=== PATIENT | female | born 1970 | race Hispanic/Latino ===

== ENCOUNTER 2017-09-21 00:09 | Emergency (ER) | payer SELFPAY ==
[2017-09-21 00:44] LABS: BASOPHILS % (AUTO) 0.8 % (0.0-5.0); EOSINOPHILS % (AUTO) 1.9 % (0.0-8.0); HEMATOCRIT 39.3 % (36-48); LYMPHOCYTES % (AUTO) 27.2 % (21.0-51.0); MEAN CORPUSCULAR HEMOGLOBIN 27.3 pg (27.0-33.0); MEAN CORPUSCULAR HGB CONC 34.1 g/dL (32.0-36.0); MONOCYTES % (AUTO) 10.9 % (3.0-13.0); NEUTROPHILS % (AUTO) 59.2 % (40.0-77.0); PLATELET COUNT (AUTO) 267 K/uL (130-400); RED BLOOD CELL COUNT(AUTO) 4.92 MIL/uL (4.00-5.50); RED CELL DISTRIBUTION WIDTH 14.6 % (11.0-15.5); WHITE BLOOD COUNT (AUTO) 9.8 K/uL (4.8-10.8)
[2017-09-21 00:53] LABS: CREATININE 0.7 mg/dL (0.5-1.5); POTASSIUM 3.5 mmol/L (3.5-5.1)
[2017-09-21 00:56] LABS: INR 0.96 (0.85-1.15); PARTIAL THROMBOPLASTIN TIME 24.7 SEC (26.3-35.5); PROTHROMBIN TIME 10.1 SEC (9.6-11.6)
[2017-09-21] MEDS ORDERED: SODIUM CHLORIDE 0.9% 1000ML 1,000 ML IV ONE (01:09)
[2017-09-21] MEDS ORDERED: ASPIRIN 325 MG TABLET ONE (01:09)
[2017-09-21 01:17] LABS: ALBUMIN 3.5 g/dL (3.5-5.0); BILIRUBIN,TOTAL 0.2 mg/dL (0.2-1.0); CREATINE KINASE MB 0.5 ng/mL (0.5-3.6); TOTAL PROTEIN, SERUM 7.7 g/dL (6.0-8.3)
== END 2017-09-21 02:19 | disposition home or self-care (01) ==
LOC: EDH 00:09
DX: R00.2 Palpitations (principal); E07.9 Disorder of thyroid, unspecified; R79.1 Abnormal coagulation profile
CPT/HCPCS: 36415; 71045; 80053; 82550; 82553; 83874; 84484; 85025; 85610; 85730; 93005; 94761; 96360; 99285; J7030

== ENCOUNTER 2019-03-19 00:13 | Emergency (ER) | payer OTHER ==
[2019-03-19] MEDS ORDERED: KETOROLAC TROMETHAMINE 30MG/ML ONE (00:46)
[2019-03-19] MEDS ORDERED: ONDANSETRON HCL 4 MG/2 ML VIAL ONE (00:46)
[2019-03-19] MEDS ORDERED: SODIUM CHLORIDE 0.9% 1000ML 1,000 ML IV ONE (00:47)
[2019-03-19 00:50] LABS: BASOPHILS % (AUTO) 0.8 % (0.0-5.0); EOSINOPHILS % (AUTO) 1.9 % (0.0-8.0); HEMATOCRIT 38.7 % (36-48); LYMPHOCYTES % (AUTO) 22.2 % (21.0-51.0); MEAN CORPUSCULAR HEMOGLOBIN 28.2 pg (27.0-33.0); MEAN CORPUSCULAR HGB CONC 34.4 g/dL (32.0-36.0); MONOCYTES % (AUTO) 9.9 % (3.0-13.0); NEUTROPHILS % (AUTO) 65.2 % (40.0-77.0); PLATELET COUNT (AUTO) 230 K/uL (130-400); RED BLOOD CELL COUNT(AUTO) 4.72 MIL/uL (4.00-5.50); RED CELL DISTRIBUTION WIDTH 13.7 % (11.0-15.5); WHITE BLOOD COUNT (AUTO) 8.3 K/uL (4.8-10.8)
[2019-03-19 00:53] LABS: APPEARANCE,URINE Clear (CLEAR); BILIRUBIN,URINE Negative (NEGATIVE); COLOR,URINE Yellow (YELLOW); GLUCOSE, URINE (UA) Negative (NEGATIVE); KETONES,URINE Negative (NEGATIVE); LEUKOCYTE ESTERASE ,URINE Negative (NEGATIVE); NITRATE,URINE Negative (NEGATIVE); OCCULT BLOOD,URINE Negative (NEGATIVE); PH,URINE 5.5 (5.0-8.0); PROTEIN,URINE Negative (NEGATIVE); UROBILINOGEN,URINE 0.2 mg/dL (0.2-1.0)
[2019-03-19 01:00] LABS: CREATININE 0.7 mg/dL (0.5-1.5); POTASSIUM 3.5 mmol/L (3.5-5.1)
[2019-03-19 01:04] LABS: ALBUMIN 3.6 g/dL (3.5-5.0); BILIRUBIN,TOTAL 0.3 mg/dL (0.2-1.0); TOTAL PROTEIN, SERUM 7.5 g/dL (6.0-8.3)
== END 2019-03-19 01:50 | disposition home or self-care (01) ==
LOC: EDH 00:13
DX: K29.00 Acute gastritis without bleeding (principal); J21.9 Acute bronchiolitis, unspecified; E07.9 Disorder of thyroid, unspecified; Z90.49 Acquired absence of other specified parts of digestive tract; Z90.710 Acquired absence of both cervix and uterus
CPT/HCPCS: 36415; 80053; 81003; 82150; 83690; 84484; 85025; 93005; 96361; 96374; 96375; 99285; J1885; J2405; J7030

== ENCOUNTER 2021-03-20 13:29 | Emergency (ER) | payer OTHER ==
[~2021-03-20] VITALS: Ht 157.5 cm; Wt 99.3 kg
[2021-03-20] MEDS ORDERED: PREDNISONE 20 MG TABLET PO ONE (16:30)
[2021-03-20] MEDS ORDERED: ACETAMINOPHEN WITH CODEINE 1 TAB TAB PO ONE (16:30)
[2021-03-20] MEDS ORDERED: AMOX/CLAV 875/125MG TAB PO ONE (16:30)
[2021-03-20] MEDS ORDERED: ALBUTEROL INHALER 90MCG/INH IH PRN (16:30)
[2021-03-20 16:46] VITALS: BP 134/84
[2021-03-20] MEDS ORDERED: BENZ-17 PO (17:23)
[2021-03-20] MEDS ORDERED: PRED20TA3 PO (17:23)
[2021-03-20] MEDS ORDERED: ALBUHFA IH (17:23)
[2021-03-20] MEDS ORDERED: AMOX-429 PO (17:23)
[2021-03-20 17:48] VITALS: BP 135/74
== END 2021-03-20 17:49 | disposition home or self-care (01) ==
LOC: EDH 13:29
DX: J40 Bronchitis, not specified as acute or chronic (principal); Z20.822 Contact with and (suspected) exposure to COVID-19; Z90.710 Acquired absence of both cervix and uterus
CPT/HCPCS: 71045; 87635; 87804 ×2; 87880; 99284; C9803

== ENCOUNTER → 2023-06-02 | Outpatient (CLI) | payer OTHER ==
[~2023-06-02] MED LIST: ALBUHFA IH; AMOX-429 PO; BENZ-17 PO; GADOTERATE MEGLUMINE 10 MMOL/20 ML VIAL IV ONE; PRED20TA3 PO
== END | disposition home or self-care (01) ==
LOC: RAH 07:56
PROVIDERS: ATTEND Internal Medicine
DX: E23.7 Disorder of pituitary gland, unspecified (principal); E27.40 Unspecified adrenocortical insufficiency
CPT/HCPCS: 70553; A9575

== ENCOUNTER 2023-08-03 20:03 | Emergency (ER) | payer BC, OTHER ==
[~2023-08-03] VITALS: Ht 154.9 cm; Wt 111.6 kg
[~2023-08-03 20:03] MED LIST changes: -GADOTERATE MEGLUMINE 10 MMOL/20 ML VIAL IV ONE
[2023-08-03] MEDS ORDERED: KETOROLAC 60 MG VIAL (30MG/ML) IM ONE (21:00)
[2023-08-03] MEDS ORDERED: IBUP-1493 PO (22:42)
[2023-08-03 23:08] VITALS: BP 134/77; PULSE 65; RESP 17; O2SAT 96
== END 2023-08-03 23:14 | disposition home or self-care (01) ==
LOC: EDH 20:03
DX: S76.911A Strain of unspecified muscles, fascia and tendons at thigh level, right thigh, initial encounter (principal); E03.9 Hypothyroidism, unspecified; E66.9 Obesity, unspecified; Z90.49 Acquired absence of other specified parts of digestive tract; Z90.710 Acquired absence of both cervix and uterus; Z68.42 Body mass index [BMI] 45.0-49.9, adult; X58.XXXA Exposure to other specified factors, initial encounter; Y93.89 Activity, other specified; Y92.89 Other specified places as the place of occurrence of the external cause; Y99.8 Other external cause status
CPT/HCPCS: 99284; 73552; 96372; J1885

== ENCOUNTER 2024-01-02 16:00 | Emergency (ER) | payer BC ==
[~2024-01-02] VITALS: Ht 154.9 cm; Wt 108.9 kg
[~2024-01-02 16:00] MED LIST changes: +IBUP-1493 PO
[2024-01-02 16:38] LABS: BASOPHILS # (AUTO) 0.04 K/uL (0.00-0.20); BASOPHILS % (AUTO) 0.5 % (0.0-5.0); EOSINOPHILS % (AUTO) 1.3 % (0.0-8.0); HEMATOCRIT 41.7 % (36-48); IMMATURE GRANULOCYTE ABSOLUTE 0.02 K/uL (0-1); LYMPHOCYTES # (AUTO) 1.1 K/uL (1.0-4.8); LYMPHOCYTES % (AUTO) 14.4 % (21.0-51.0); MEAN CORPUSCULAR HEMOGLOBIN 27.2 pg (27.0-33.0); MEAN CORPUSCULAR HGB CONC 32.6 g/dL (32.0-36.0); MEAN CORPUSCULAR VOLUME 83.4 fL (79-99); MONOCYTES # (AUTO) 0.7 K/uL (0.1-1.0); MONOCYTES % (AUTO) 8.7 % (3.0-13.0); NEUTROPHILS # (AUTO) 5.7 K/uL (1.8-7.7); NEUTROPHILS % (AUTO) 74.8 % (40.0-77.0); PLATELET COUNT (AUTO) 278 K/uL (130-400); RED CELL DISTRIBUTION WIDTH 14.4 % (11.0-15.5); WHITE BLOOD COUNT (AUTO) 7.6 K/uL (4.8-10.8)
[2024-01-02 16:50] LABS: INR 1.02 (0.85-1.15)
[2024-01-02 16:51] LABS: PARTIAL THROMBOPLASTIN TIME 25.1 SEC (26.3-35.5)
[2024-01-02 16:56] LABS: CREATININE 0.9 mg/dL (0.5-1.0)
[2024-01-02] MEDS: IBUPROFEN 800 MG TAB PO ONE (17:44)
[2024-01-02] MEDS ORDERED: IBUP-2077 PO (17:44)
[2024-01-02 17:58] VITALS: BP 121/54; PULSE 71; RESP 17; O2SAT 96
== END 2024-01-02 18:16 | disposition home or self-care (01) ==
LOC: EDH 16:00
DX: M79.605 Pain in left leg (principal); M79.89 Other specified soft tissue disorders; E03.9 Hypothyroidism, unspecified; Z79.899 Other long term (current) drug therapy; Z90.49 Acquired absence of other specified parts of digestive tract; Z90.710 Acquired absence of both cervix and uterus; Z98.890 Other specified postprocedural states
CPT/HCPCS: 36415; 80048; 85025; 85610; 85730; 93971

== ENCOUNTER 2024-07-25 21:52 | Emergency (ER) | payer BC ==
[~2024-07-25] VITALS: Ht 154.9 cm; Wt 108.9 kg
[~2024-07-25 21:52] MED LIST changes: +IBUP-2077 PO
--- NOTE | 2024-07-25 22:06 | NUR ---
ADULT SEPSIS TOOL STARTED AND GIVEN TO PRIMARY NURSE. SEPSIS ALERT CALLED
--- NOTE | 2024-07-25 22:06 | NUR ---
UA CUP PROVIDED
[2024-07-25] MEDS: LACTATED RINGERS 1000ML 1,000 ML IV ONE (22:37)
[2024-07-25] MEDS: ketOROlac 15MG/ML VIAL (15MG/ML) IV ONE (22:38)
[2024-07-25 23:02] LABS: CREATININE 0.7 mg/dL (0.5-1.0)
--- NOTE | 2024-07-25 23:06 | HMCIMG ---
CHEST 1VW HISTORY: Cough COMPARISON: 03/20/2021 FINDINGS: A frontal projection of the chest was obtained. Mild bilateral pulmonary infiltrates are seen may be related to mild pulmonary vascular congestion with possible superimposed pneumonitis. The heart is borderline enlarged. Degenerative changes are seen. No evidence of aortic calcification is seen. IMPRESSION: 1. Mild bilateral pulmonary infiltrates are seen may be related to mild pulmonary vascular congestion with possible superimposed pneumonitis.
[2024-07-25 23:13] LABS: COVID19 (SARS ANTIGEN RAPID) PRESUMPTIVE NEGATIVE (NEGATIVE); INFLUENZA TYPE A Negative For Type A (NEGATIVE); INFLUENZA TYPE B Negative For Type B (NEGATIVE)
--- NOTE | 2024-07-25 23:30 | ERN ---
General Chief Complaint: Sepsis Stated Complaint: CHILLS,FEVER,COUGH,CHEST PAINS Time Seen by MD: 21:55 History of Present Illness Initial Comments 54-year-old female, history of hypothyroidism, obesity, presents from home for a flu-like illness. She reports body aches, fevers, headache, sore throat, mild cough, and some loose stools. P.o. tolerant. Some chest discomfort with coughing. No respiratory distress. She reports that her grandson has a influenza a currently. Allergies: Coded Allergies: No Known Allergies (Unverified Allergy, Unknown, 03/20/21) Home Meds Active Scripts Ibuprofen (Ibuprofen 800 mg Tab) 800 Mg Tab, 800 MG PO Q8H PRN for fever or pain, #30 TAB 0 Refills Prov:GENA BABCOCK NP 01/02/24 Ibuprofen (Motrin/Advil) 800 Mg Tab, 800 MG PO Q8H, #12 TAB Prov:TIMUR MARMOLEJO MD 08/03/23 Benzonatate (Tessalon Perle) 100 Mg Capsule, 200 MG PO TIDP, #30 CAP Prov:LUPE TORO 03/20/21 Prednisone (Prednisone) 20 Mg Tablet, 2 TAB PO AD for 6 Days, #10 TAB 0 Refills TAKE 1 TAB BY MOUTH THREE TIMES PER DAY X3 DAYS, THEN TAKE 1 TAB BY MOUTH TWICE A DAY X2 DAYS, THEN TAKE 1 TAB BY MOUTH ONCE A DAY X1 DAY. Prov:LUPE TORO 03/20/21 Albuterol Sulfate (Ventolin Hfa/Proventil Hfa/Proair Hfa) 90 Mcg/Puff Puff, 2 PUFF IH Q4H, #1 INH Prov:LUPE TORO 03/20/21 Amoxicillin/Potassium Clav (Augmentin 875-125 Tablet) 1 Each Tablet, 1 TAB PO BID for 10 Days, #20 TAB 0 Refills Prov:LUPE TORO 03/20/21 Past Medical History Past Medical History: Hypothyroid, Other Medical History Other: STOMACHE ULCER, THYROID, obesity, LOW CORTISOL Past Surgical History: Hysterectomy, Cholecystectomy, Surgical History Other: LEFT EYE SX Female( History) History: Not Applicable ROS Dictation CONSTITUTIONAL: Fevers and chills HEAD/FACE: No signs of trauma. EENT: No eye pain, no blurred vision, no tearing, no double vision, no ear pain, no ear discharge, no nose pain, no nasal congestion, no throat pain, no throat swelling, no mouth pain. RESPIRATORY: No cough, no orthopnea, no SOB, no stridor, no wheezing. CARDIOVASCULAR: No chest pain, no edema, no palpitations, no syncope. GASTROINTESTINAL/ABDOMINAL: No abdominal pain, no constipation, no diarrhea, no nausea, no vomiting. GENITOURINARY: No abnormal discharge, no dysuria, no frequent urination, no hematuria. No complaints of pain in the genitals. MUSCULOSKELETAL: No back pain, no gout, no joint pain, no joint swelling, no muscle pain, no muscle stiffness, no neck pain. INTEGUMENTARY: No change in color, no change in hair/nails, no dryness, no lesion, no lumps, no rash. NEUROLOGICAL/PSYCH: No anxiety, not depressed, no emotional problem, no headache, no numbness, no pre-existing deficit, no history of seizures, no t remors, no weakness. HEMATOLOGIC/LYMPHATIC: Not anemic, no history of blood clots, no apparent bleeding, no bruising, glands not swollen. All Systems Negative, Except as Noted. Physical Exam Physical Exam Dictation VITAL SIGNS: Reviewed. GENERAL APPEARANCE: Alert, oriented x3, no acute distress, obese. HEAD AND FACE: Non-traumatic. EYES: PERRL, pink conjunctivas, eyelid no trauma, anterior chamber clear. EARS: Pinnas intact and no signs of trauma or erythema. Ear canals clear and no discharge. TMs no erythema. NOSE: No discharge, no bleeding. OROPHARYNX: Mouth normal, teeth no caries, tongue pink. Pharynx clear, no erythema. Tonsils no exudates, no abscesses noted. Mucous membrane moist. NECK: Supple, non-tender, no thyromegaly, no masses, no JVD, no bruits. BREAST: Deferred. CHEST: No tenderness, no crepitus, no paradoxical movement, no retractions. LUNGS: Clear, well-ventilated, symmetric, no rales, no wheezing, no rhonchi, no stridor, good breath sounds bilaterally. HEART: Regular rate, regular rhythm, no murmur, no gallops. VASCULAR: No peripheral edema. ABDOMEN: Soft, positive bowel sounds, nondistended, no guarding, nontender, no rebound, no masses no hepatomegaly, no splenomegaly, no Bernabe's sign, no hernias. RECTAL: Deferred. GENITAL: Deferred. NEUROLOGICAL: Normal speech, gross motor function intact, gross sensory function intact. MUSCULOSKELETAL: Neck nontender, full range of motion, back nontender, full range of motion. EXTREMITIES: Nontender, full range of motion. SKIN: Color pink, dry, no turgor, no rash, no lacerations, no abrasions, no contusions. LYMPHATICS: Deferred. Results Laboratory and Microbiology Lab and Micro Result Laboratory Tests Test 07/25/24 22:29 07/25/24 22:30 Sodium Level 137 mmol/L (136-145) Potassium Level 4.0 mmol/L (3.5-5.1) Chloride Level 102 mmol/L (101-111) Carbon Dioxide Level 28 mmol/L (21-32) Blood Urea Nitrogen 17 mg/dL (7-18) Creatinine 0.7 mg/dL (0.5-1.0) Glomerular Filtration Rate Calc 103 mL/min (>90) Random Glucose 111 mg/dL (70-105) H Lactic Acid Level 1.9 mmol/L (0.8-2.5) Total Calcium 8.4 mg/dL (8.5-10.1) L Total Creatine Kinase 124 U/L (21-232) # Troponin I High Sensitivity < 4 ng/L (4-50) L Influenza Type A Antigen Negative For Type A Influenza Type B Antigen Negative For Type B SARS-CoV-2 Antigen (Rapid) PRESUMPTIVE NEGATIVE MDM CC: Flu-like symptoms Historian: Patient Comorbidities: Obesity, hypothyroidism Limitations by social determinants of health: None Initial vital signs of febrile mild tachycardia otherwise stable Vital signs improved in the ER with treatment Differential diagnosis: Flu-like illness, dehydration, bronchitis, pneumonia, other. Chest x-ray per my independent interpretation is unremarkable, there is no focal infiltrates or major abnormalities. BNP is stable. Troponin stable. Lactic acid stable. CK stable. Fluid a and COVID are negative, but I suspect that this is the patient's symptoms and she was close contact with the similar symptoms. Patient received IV fluids and IV Toradol here in the ER. On On re-evaluation patient was stable. Since the flu swab was negative we will avoid Tamiflu and recommend symptomatic treatment. Patient is agreeable with the plan. We will DC. ED Course Orders Procedure Category Date Status Time Blood Cult CORY 07/25/24 In Process 22:07 Urinalysis Profile LAB 07/25/24 Logged 22:07 Culture Urine CORY 07/25/24 Logged 22:07 Creatine Kinase, Total LAB 07/25/24 Complete 22:07 Troponin I High LAB 07/25/24 Complete Sensitivity 22:07 Lactic Acid LAB 07/25/24 Complete 22:07 Basic Metabolic Panel LAB 07/25/24 Complete 22:07 Chest 1vw RAD 07/25/24 Resulted 22:07 Influenza Type A & B, LAB 07/25/24 Complete Rapid 22:07 Ketorolac PHA 07/25/24 Complete Tromethamine 15mg/Ml 22:30 Covid19 (Sars Antigen LAB 07/25/24 Complete Rapid) 22:07 Lactated Ringers PHA 07/25/24 Complete 1000ml (Lactated 22:30 Cbc With Differential LAB 07/25/24 Logged 23:15 Current Medications Medications (Trade) Dose Ordered Sig/Daniela Route PRN Reason Start Time Stop Time Status Last Admin Dose Admin Ketorolac Tromethamine (toRADol) 15 mg ONCE ONCE IV 07/25/24 22:30 07/25/24 22:31 DC 07/25/24 22:38 Lactated Ringer's 1,000 ml @ 0 mls/hr ONCE ONCE IV 07/25/24 22:30 07/25/24 22:31 DC 07/25/24 22:37 Vital Signs Date Time Temp Pulse Resp B/P (MAP) Pulse Ox O2 Delivery O2 Flow Rate FiO2 07/25/24 21:58 102.4 102 20 141/72 97 Room Air DX & DISP Disposition: Discharge Departure Impression: Primary Impression: Flu-like symptoms Additional Impressions: Viral infection, Mild dehydration Condition: Stable Additional Instructions: Your symptoms are consistent with a flu-like illness. This is a viral infection that does not require antibiotics. You did have a fever here in the ER. This improved with treatment. Your chest x-ray is clear. Your blood work is unremarkable. The flu and COVID swabs were negative. You can treat your condition with eymi-oqe-waqxdif medications such as Tylenol or Motrin for fever, and [id number] cough cold and congestion medications. If you develop any respiratory distress, dehydration, or fever lasting longer than three days, I recommend that you follow up with your primary doctor or return to the emergency department. Referrals: TIFFANIE TIDWELL (PCP) ELIZABETH PIERRE DO Jul 25, 2024 23:30
[2024-07-25 23:36] LABS: APPEARANCE,URINE CLEAR (CLEAR); BILIRUBIN,URINE NEGATIVE (NEGATIVE); COLOR,URINE COLORLESS (YELLOW); GLUCOSE, URINE (UA) NEGATIVE (NEGATIVE); KETONES,URINE NEGATIVE (NEGATIVE); LEUKOCYTE ESTERASE ,URINE NEGATIVE Leu/uL (NEGATIVE); NITRATE,URINE NEGATIVE (NEGATIVE); OCCULT BLOOD,URINE NEGATIVE (NEGATIVE); PH,URINE 6.5 (5.0-8.0); PROTEIN,URINE NEGATIVE (NEGATIVE); UROBILINOGEN,URINE 0.2 mg/dL (0.2-1.0)
[2024-07-25 23:37] LABS: ADD UA MICROSCOPIC NO
[2024-07-25 23:40] VITALS: BP 123/57; PULSE 95; RESP 20; TEMP 99.9; O2SAT 99
== END 2024-07-25 23:50 | disposition home or self-care (01) ==
LOC: EDH 21:52
DX: B34.9 Viral infection, unspecified (principal); E86.0 Dehydration; E03.9 Hypothyroidism, unspecified; E66.9 Obesity, unspecified; Z90.49 Acquired absence of other specified parts of digestive tract; Z90.710 Acquired absence of both cervix and uterus; Z68.42 Body mass index [BMI] 45.0-49.9, adult; Z20.822 Contact with and (suspected) exposure to COVID-19
CPT/HCPCS: 99284; 96374; 71045; 87426; 82550; 84484; 80048; 87040 ×2; 87086; 87804 ×2; 83605; 81003; 36415; J1885; J7120

== ENCOUNTER 2025-05-30 23:44 | Emergency (ER) | payer BC ==
[~2025-05-30] VITALS: Ht 157.5 cm; Wt 113.4 kg
--- NOTE | 2025-05-30 23:53 | NUR ---
COVID AND FLU SWABS COLLECTED AND SENT
--- NOTE | 2025-05-30 23:53 | NUR ---
UA CUP PROVIDED
--- NOTE | 2025-05-31 00:20 | ERN ---
ED Note History of Present Illness Stated Complaint: LEFT LEG PAIN SWELLING, COUGH, ABSCESS Chief Complaint: Multiple Complaints Time Seen by MD: 23:56 Dictation: This is a 55-year-old female with multiple medical problems comes into the emergency room with complaints of multiple somatic issues. She reports body aches cough with sputum and subjective fever with chills. She had similar presentation in the past and she has exposure to her grandchildren she also reports left leg pain and swelling. She took Tylenol at 10:00 p.m. and then came into the ER for further evaluation Temperature 98 pulse 102 respirations 20 blood pressure 120/77 with a pulse oximetry of 99% on room air BMI is 46 Chronic medical problems include hypothyroidism, peptic ulcer disease, adrenal insufficiency Allergies: Coded Allergies: No Known Allergies (Unverified Allergy, Unknown, 03/20/21) Home Meds Active Scripts Cephalexin (Cephalexin) 500 Mg Tablet, 1 TAB PO BID for 10 Days, #20 TAB 0 Refills Prov:KEITH HDZ MD 05/31/25 Ibuprofen (Ibuprofen 800 mg Tab) 800 Mg Tab, 800 MG PO Q8H PRN for fever or pain, #30 TAB 0 Refills Prov:GENA BABCOCK 01/02/24 Ibuprofen (Motrin/Advil) 800 Mg Tab, 800 MG PO Q8H, #12 TAB Prov:TIMUR MARMOLEJO MD 08/03/23 Benzonatate (Tessalon Perle) 100 Mg Capsule, 200 MG PO TIDP, #30 CAP Prov:LUPE TORO 03/20/21 Prednisone (Prednisone) 20 Mg Tablet, 2 TAB PO AD for 6 Days, #10 TAB 0 Refills TAKE 1 TAB BY MOUTH THREE TIMES PER DAY X3 DAYS, THEN TAKE 1 TAB BY MOUTH TWICE A DAY X2 DAYS, THEN TAKE 1 TAB BY MOUTH ONCE A DAY X1 DAY. Prov:LUPE TORO 03/20/21 Albuterol Sulfate (Ventolin Hfa/Proventil Hfa/Proair Hfa) 90 Mcg/Puff Puff, 2 PUFF IH Q4H, #1 INH Prov:LUPE TORO 03/20/21 Amoxicillin/Potassium Clav (Augmentin 875-125 Tablet) 1 Each Tablet, 1 TAB PO BID for 10 Days, #20 TAB 0 Refills Prov:LUPE TORO 03/20/21 Past Medical History Past Medical History: Hypothyroid, Other Additional Past Medical Hx: STOMACHE ULCER, obesity, LOW CORTISOL, ADRENAL GLAND INFUFFICIENCY Surgical History: Hysterectomy, Cholecystectomy, Surgical History Other: LEFT EYE SX Family History: Negative Social History: Negative History: Not Applicable RN Note Reviewed/Agreed w/PFSH: Yes Review of System Dictation Constitutional: Negative for fever, and weight loss positive for chills, and body aches Eyes: Negative for injury, pain,redness, and discharge ENT: Negative for injury,pain or swelling Cardiovascular: Negative for chest pain, palpitations, and edema Respiratory: Negative for shortness of breath, and wheezing, positive for cough, and chest congestion Abdomen/GI: Negative for abdominal pain, nausea, vomiting, diarrhea, and constipation Back: Negative for injury and pain : Negative for injury, bleeding and discharge MS/Extremity: Negative for injury and deformity positive for left leg swelling Skin: Negative for rash, and discoloration Neuro: Negative for headache, weakness, numbness, tingling, and seizure Psych: Negative for suicide ideation, homicidal ideation, and hallucinations Initial Vital Sign VS Vital Signs Date Time Temp Pulse Resp B/P (MAP) Pulse Ox O2 Delivery O2 Flow Rate FiO2 05/30/25 23:51 98.1 102 20 120/77 99 Room Air 05/31/25 01:41 0 21 Physical Exam Dictation General: awake, alert, NAD morbidly obese female Head/Face: Normocephalic, atraumatic Eyes: PERRL, EOMI, vision at baseline ENT: oral cavity clear, TMs clear, no signs of infection Neck: Trachea midline, supple, no nuchal rigidity Cardiovascular: RRR, normal S1/S2, No MRGs, no JVD Respiratory: CTAB, no respiratory distress, No rales or wheezes Abdomen: Soft, non-tender, non-distended, normal bowel sounds, no guarding or rebound. Skin: Warm, dry, normal turgor, no rash left infra-axillary area 2.5 x 3 cm erythematous boil with surrounding inflammation. No drainage or open wound noted. MS/Extremity: Pulses equal, no cyanosis, neurovascular intact, FROM Neuro: COAx4, GCS 15, strength 5/5, CN 2-12 intact, normal cerebellar exam, normal gait, Psych: Normal behavior, mood, and affect normal Extremities-trace edema without any palpable cords, Homans sign is negative left leg edema more than the right leg. Calf tenderness on the left side Results (Laboratory/Radiology) Laboratory/Radiology Laboratory Tests Test 05/30/25 23:53 05/31/25 00:53 Influenza Type A Antigen Negative For Type A Influenza Type B Antigen Negative For Type B SARS-CoV-2, RNA, NAAT NEGATIVE SARS CoV-2 Urine Color YELLOW (YELLOW) Urine Appearance CLEAR (CLEAR) Urine pH 6.0 (5.0-8.0) Urine Specific [place] 1.033 (1.001-1.031) Urine Protein 10 mg/dL (NEGATIVE) H Urine Glucose (UA) NEGATIVE mg/dL (NEGATIVE) Urine Ketones 5 mg/dL (NEGATIVE) H Urine Occult Blood NEGATIVE (NEGATIVE) Urine Nitrate NEGATIVE (NEGATIVE) Urine Bilirubin NEGATIVE mg/dL (NEGATIVE) Urine Urobilinogen 2.0 mg/dL (0.2-1.0) H Urine Leukocyte Esterase NEGATIVE Linda/uL Urine RBC 0-1 /HPF (0-1) Urine WBC 2-5 /HPF (0-1) H Urine Squamous Epithelial Cells 0-2 /HPF (0-2) Urine Bacteria Rare /HPF (None Seen) Labs Reviewed?: Yes ED Course ED Course Orders Procedure Category Date Status Time Covid Rna Naat LAB 05/30/25 Complete 23:53 Influenza Type A & B, LAB 05/30/25 Complete Rapid 23:53 Urinalysis Profile LAB 05/30/25 Complete 23:53 Ketorolac PHA 05/31/25 Complete Tromethamine 30mg/Ml 01:30 Methylprednisolone PHA 05/31/25 Complete Succ 125mg (Solu-Medr 01:30 Albuterol 0.083% PHA 05/31/25 Complete 2.5mg/3ml (Proventil 01:30 Us Venous Doppler US 05/31/25 Resulted Unilateral 02:09 Cephalexin 500 Mg PHA 05/31/25 Complete Capsule (Keflex 500 Mg 02:30 Current Medications Medications (Trade) Dose Ordered Sig/Daniela Route PRN Reason Start Time Stop Time Status Last Admin Dose Admin Albuterol Sulfate (Proventil 0.083% 2.5mg/3ml) 2.5MG ONCE ONCE IH 05/31/25 01:30 05/31/25 01:31 DC 11/29/25 01:52 Cephalexin (Keflex 500 MG CAPS) 500 mg ONCE ONCE PO 05/31/25 02:30 05/31/25 02:31 DC 05/31/25 02:34 Ketorolac Tromethamine (toRADol) 30 mg ONCE ONCE IVP 05/31/25 01:30 05/31/25 01:31 DC 05/31/25 01:57 Methylprednisolone Sodium Succinate (Solu-medROL 125MG) 125 mg ONCE ONCE IVP 05/31/25 01:30 05/31/25 01:31 DC 05/31/25 01:56 Vital Signs Date Time Temp Pulse Resp B/P (MAP) Pulse Ox O2 Delivery O2 Flow Rate FiO2 05/31/25 01:52 93 18 05/31/25 01:41 94 18 112/54 98 Room Air* 0 21 05/30/25 23:51 98.1 102 20 120/77 99 Room Air Medical Decision Making MDM Differential diagnosis-acute viral syndrome, bronchitis, sepsis, cellulitis of the chest wall, DVT of the left lower extremity This is a 55-year-old female with multiple medical problems comes into the emergency room with complaints of multiple somatic issues. She reports body aches cough with sputum and subjective fever with chills. She had similar presentation in the past and she has exposure to her grandchildren she also reports left leg pain and swelling. She took Tylenol at 10:00 p.m. and then came into the ER for further evaluation Temperature 98 pulse 102 respirations 20 blood pressure 120/77 with a pulse oximetry of 99% on room air BMI is 46 Chronic medical problems include hypothyroidism, peptic ulcer disease, adrenal insufficiency 1:30 a.m.-urinalysis is unremarkable and the pharyngeal swabs for influenza and COVID are negative. Venous Doppler study of lower extremity was requested to evaluate for a DVT of the left leg 4:00 a.m.-venous Doppler study results were negative for a DVT Patient will be discharged to home on antibiotic. A dose of antibiotic was given here Rationale: Tests considered and ordered secondary to shared decision making include: Labs ultrasound of the leg Previous outside records reviewed: Old ER visits. Risk of complication and/or morbidity or mortality of patient management: None Medications-Per medication reconciliation Need for hospitalization: Patient does not meet criteria for hospitalization. Need for emergency major/minor surgery: No There are no social concerns with this patient. Prescription drug management Prescriptions will include symptomatic care Patient's prior external medical records from other ER visits were reviewed by me as indicated. Prior testing and results from previous visits were reviewed. Prior tests were taken into account with medical decision making and resource utilization, independent historian/historians were used to obtain complete medical history. I independently interpreted the test that were performed, results were reviewed by me and considered findings on radiology if ordered. Medical management and examination interpretation discussions were had by me with other qualified healthcare professionals as indicated for the patient's care. Problem List Problem List: (1) Abscess or cellulitis of chest wall (2) Flu-like symptoms (3) Left leg pain (4) Bronchitis DX & DISP Disposition: Discharge Departure Impression: Primary Impression: Abscess or cellulitis of chest wall Additional Impressions: Flu-like symptoms, Left leg pain Condition: Stable Scripts Cephalexin (Cephalexin) 500 Mg Tablet 1 TAB PO BID for 10 Days, #20 TAB 0 Refills Prov: KEITH HDZ MD 05/31/25 Additional Instructions: Patient and the caregiver have been informed of all the diagnostic tests and the imaging conducted during the today's visit to the emergency room and has verbalized understanding of the results I have personally reviewed and interpreted all diagnostic exams performed here in the ER today as well as the vital signs documented by the nursing staff. The patient is now being discharged to home and should follow up with the primary care physician or the specialist as directed by the ER staff. Referrals: TIFFANIE TIDWELL (PCP) KEITH HDZ MD May 31, 2025 00:20
[2025-05-31 00:35] LABS: INFLUENZA TYPE A Negative For Type A (NEGATIVE); INFLUENZA TYPE B Negative For Type B (NEGATIVE)
[2025-05-31 00:42] LABS: SARS-CoV-2, RNA, NAAT NEGATIVE SARS CoV-2 (NEGATIVE)
--- NOTE | 2025-05-31 00:53 | NUR ---
UA COLLECTED AND SENT
[2025-05-31 01:05] LABS: APPEARANCE,URINE CLEAR (CLEAR); GLUCOSE, URINE (UA) NEGATIVE (NEGATIVE); LEUKOCYTE ESTERASE ,URINE NEGATIVE Leu/uL (NEGATIVE); NITRATE,URINE NEGATIVE (NEGATIVE); OCCULT BLOOD,URINE NEGATIVE (NEGATIVE)
[2025-05-31 01:12] LABS: ADD UA MICROSCOPIC YES
[2025-05-31 01:16] LABS: SQUAMOUS EPITHELIAL CELL,UR 0-2 /HPF (0-2)
[2025-05-31 01:52] VITALS: PULSE 93; RESP 18
[2025-05-31] MEDS: ALBUTEROL 0.083% 2.5 MG/3 ML INH IH ONE (01:52)
[2025-05-31] MEDS ORDERED: CEPH500T PO (02:18)
--- NOTE | 2025-05-31 03:15 | HMCIMG ---
EXAM: US for Deep Venous Thrombosis, left Lower Extremity. CLINICAL HISTORY: Leg Pain and Swelling TECHNIQUE: Real-time ultrasound scan of the veins of the left lower extremity with color Doppler flow, spectral waveform analysis, and compression. COMPARISON: None provided. FINDINGS: DEEP VEINS: The common femoral, superficial femoral, and popliteal veins are echolucent and compressible. There is normal color Doppler flow throughout. The visualized calf veins appear patent. SOFT TISSUES: No popliteal fossa cyst or other abnormalities. IMPRESSION: No deep venous thrombosis is evident on the left lower extremity examination. /Lashay
[2025-05-31 04:44] VITALS: BP 128/68; PULSE 76; RESP 18; TEMP 98.4; O2SAT 97
== END 2025-05-31 04:52 | disposition home or self-care (01) ==
LOC: EDH 23:44
DX: M79.605 Pain in left leg (principal); R22.42 Localized swelling, mass and lump, left lower limb; R05.9 Cough, unspecified; E03.8 Other specified hypothyroidism; E66.01 Morbid (severe) obesity due to excess calories; Z90.710 Acquired absence of both cervix and uterus; Z90.49 Acquired absence of other specified parts of digestive tract; Z98.890 Other specified postprocedural states; Z68.42 Body mass index [BMI] 45.0-49.9, adult; Z20.822 Contact with and (suspected) exposure to COVID-19
CPT/HCPCS: 99284; 87635; 87804 ×2; 81001; 96374; 93971; 96375; 94640; J1885; J2919